=== PATIENT | male | born 1955 | race African-American/Black ===

== ENCOUNTER 2022-08-15 14:26 | Inpatient (IN) | payer OTHER ==
[~2022-08-15] VITALS: Ht 190.5 cm; Wt 120.0 kg
[2022-08-15 17:28] LABS: BASO % 0.4 % (0.0-1.0); EOS # 0.8 10^3/uL (0.0-0.5); EOS % 7.3 % (0.0-3.0); HEMATOCRIT 41.9 % (42.0-52.0); HEMOGLOBIN 13.8 g/dl (13.5-17.5); LYMPH # 1.6 10^3/uL (1.5-5.0); LYMPH % 15.2 % (24.0-44.0); MEAN CORPUSCULAR HEMOGLOBIN 30.7 pg (27.0-33.0); MEAN CORPUSCULAR HGB CONC 32.9 g/dl (32.0-36.5); MEAN CORPUSCULAR VOLUME 93.3 fl (80.0-96.0); MONO # 0.5 10^3/uL (0.0-0.8); MONO % 4.4 % (2.0-8.0); NEUTROPHILS # 7.5 10^3/uL (1.5-8.5); NEUTROPHILS % 72.4 % (36.0-66.0); PLATELET COUNT, AUTOMATED 259 10^3/uL (150-450); RED BLOOD COUNT 4.49 10^6/uL (4.30-6.10); WHITE BLOOD COUNT 10.4 10^3/uL (4.0-10.0)
[2022-08-15 18:07] LABS: CALCIUM LEVEL 9.3 MG/DL (8.8-10.2); CREATININE FOR GFR 1.62 MG/DL (0.70-1.30); GLOMERULAR FILTRATION RATE 55.6 (>49); POTASSIUM SERUM 3.6 MEQ/L (3.5-5.1)
[2022-08-15] MEDS ORDERED: HEPARIN SOD (PORCINE) 5000UNITS/ML 1ML VIAL/SYRINGE IV PRN (18:45)
[2022-08-15] MEDS ORDERED: HEPARIN SOD (PORCINE) 5000UNITS/ML 1ML VIAL/SYRINGE IV ONE (19:00)
[2022-08-15 19:12] LABS: C REACTIVE PROTEIN QUANTITATIV 1.19 MG/DL (0.00-0.30)
[2022-08-15] MEDS ORDERED: CETI-24 PO (20:03)
[2022-08-15] MEDS ORDERED: DYMI137S ×2 (20:03→20:30)
[2022-08-15] MEDS ORDERED: ALLO300T2 PO (20:03)
[2022-08-15] MEDS: HEPARIN DRIP 25,000 UNITS in IV 1 EA IV SCH (20:07)
[2022-08-15 20:22] LABS: INR 1.05; PROTHROMBIN TIME 14.1 SECONDS (12.7-14.5)
[2022-08-15 20:23] LABS: PARTIAL THROMBOPLASTIN TIME 31.5 SECONDS (25.9-37.0)
[2022-08-15 20:25] LABS: D-DIMER QUANT 1453.32 ng/ml (<500)
[2022-08-15] MEDS ORDERED: CLON0.5T2 PO (20:30)
[2022-08-15] MEDS ORDERED: ISOS1TAB35 PO (20:30)
[2022-08-15] MEDS ORDERED: PRIM50TA6 PO (20:30)
[2022-08-15] MEDS ORDERED: OMEP-173 PO (20:30)
[2022-08-15] MEDS ORDERED: POTA-149 PO (20:30)
[2022-08-15] MEDS ORDERED: MIRA3350 PO (20:30)
[2022-08-15] MEDS ORDERED: ATOR1TAB21 PO (20:30)
[2022-08-15] MEDS ORDERED: DOXE50CA PO (20:30)
[2022-08-15] MEDS ORDERED: KEPP250T5 PO (20:30)
[2022-08-15] MEDS ORDERED: AZEL1SPR3 NARES (20:30)
[2022-08-15] MEDS ORDERED: METO1TAB33 PO (20:30)
[2022-08-15] MEDS ORDERED: FURO40TA2 PO (20:30)
[2022-08-15] MEDS ORDERED: METO200T28 PO (20:30)
[2022-08-15] MEDS ORDERED: HYDR12CA PO (20:30)
[2022-08-15] MEDS ORDERED: ASPI81TA26 PO (20:30)
[2022-08-15] MEDS ORDERED: ADV500INH INH (20:30)
[2022-08-15] MEDS ORDERED: SPIR12.9 INH (20:30)
[2022-08-15] MEDS ORDERED: HYDR-3910 PO (20:30)
[2022-08-15] MEDS ORDERED: PROAAER10 INH (20:30)
[2022-08-15] MEDS ORDERED: FLON1SPR NARES (20:30)
[2022-08-15] MEDS ORDERED: VITA100093 PO (20:30)
[2022-08-15] MEDS ORDERED: DIPH50CA PO (20:30)
[2022-08-15] MEDS ORDERED: FOLI1TAB11 PO (20:30)
[2022-08-15] MEDS ORDERED: HOME MED LIST COMPLETE! XX SCH (20:35)
[2022-08-15 23:30] VITALS: BP 126/76
[2022-08-16] VITALS (7 sets, daily range): BP systolic 124–138; BP diastolic 66–85
[2022-08-16] MEDS: HEPARIN DRIP 25,000 UNITS in IV 1 EA IV SCH (03:52)
[2022-08-16] MEDS ORDERED: clonazePAM 0.5 MG TAB PO PRN (06:25)
[2022-08-16 06:46] LABS: HEMATOCRIT 36.1 % (42.0-52.0); MEAN CORPUSCULAR HEMOGLOBIN 31.3 pg (27.0-33.0); MEAN CORPUSCULAR HGB CONC 33.2 g/dl (32.0-36.5); PLATELET COUNT, AUTOMATED 228 10^3/uL (150-450); RED BLOOD COUNT 3.84 10^6/uL (4.30-6.10)
[2022-08-16 07:15] LABS: BLOOD UREA NITROGEN 18 MG/DL (7-18); CALCIUM LEVEL 9.2 MG/DL (8.8-10.2); CARBON DIOXIDE LEVEL 30 MEQ/L (21-32); CHLORIDE LEVEL 103 MEQ/L (98-107); CREATININE FOR GFR 1.43 MG/DL (0.70-1.30); GLOMERULAR FILTRATION RATE > 60.0 (>49); GLUCOSE, FASTING 88 MG/DL (70-100); POTASSIUM SERUM 3.5 MEQ/L (3.5-5.1); SODIUM LEVEL 139 MEQ/L (136-145)
[2022-08-16] MEDS: OMEPRAZOLE 20MG CAP PO SCH ×2 (08:14→21:49)
[2022-08-16] MEDS: POLYVINYL ALCOHOL OPHTH SOLN 15 ML(LIQUITEARS) OU SCH ×4 (08:14→21:49)
[2022-08-16] MEDS: allopurinoL 300 MG TAB PO SCH (08:14)
[2022-08-16] MEDS: PRIMIDONE 50MG TAB PO SCH ×2 (08:14→21:48)
[2022-08-16] MEDS: FLUTICASONE PROP 0.05% NASAL SPRAY 16 GM (FLONASE) NARES SCH (08:14)
[2022-08-16] MEDS: hydroCHLOROthiazide 12.5 MG CAPSULE PO SCH (08:14)
[2022-08-16] MEDS: FUROSEMIDE 20 MG TAB PO SCH (08:14)
[2022-08-16] MEDS: DOXEPIN 25 MG CAP PO SCH ×2 (08:15→21:49)
[2022-08-16] MEDS: ISOSORBIDE MON. (IMDUR) 30MG XR TAB PO SCH (08:15)
[2022-08-16] MEDS: levETIRAcetam 250MG TABLET (KEPPRA) PO SCH ×2 (08:15→21:49)
[2022-08-16] MEDS: METOPROLOL SUCC (TopROL XL) 100MG *XL* TAB PO SCH (08:23)
[2022-08-16] MEDS: ADVAIR HFA 230/21MCG INHALER INH SCH ×2 (08:42→19:52)
[2022-08-16] MEDS: APIXABAN 5 MG TAB (ELIQUIS) PO SCH ×2 (12:12→21:48)
[2022-08-16] MEDS: ATORVASTATIN 20 MG TAB PO SCH (21:49)
[2022-08-16] MEDS: ACETAMINOPHEN TAB 650MG DOSE (2X325MG) PO PRN (22:30)
[2022-08-17] VITALS (8 sets, daily range): BP systolic 119–143; BP diastolic 67–92; PULSE 80
[2022-08-17 06:20] LABS: HEMATOCRIT 35.7 % (42.0-52.0); HEMOGLOBIN 11.9 g/dl (13.5-17.5); MEAN CORPUSCULAR HEMOGLOBIN 31.3 pg (27.0-33.0); MEAN CORPUSCULAR HGB CONC 33.3 g/dl (32.0-36.5); MEAN CORPUSCULAR VOLUME 93.9 fl (80.0-96.0); PLATELET COUNT, AUTOMATED 236 10^3/uL (150-450); WHITE BLOOD COUNT 7.5 10^3/uL (4.0-10.0)
[2022-08-17 06:45] LABS: BLOOD UREA NITROGEN 22 MG/DL (7-18); CARBON DIOXIDE LEVEL 29 MEQ/L (21-32); CHLORIDE LEVEL 102 MEQ/L (98-107); CREATININE FOR GFR 1.49 MG/DL (0.70-1.30); GLOMERULAR FILTRATION RATE > 60.0 (>49); GLUCOSE, FASTING 106 MG/DL (70-100); POTASSIUM SERUM 3.5 MEQ/L (3.5-5.1); SODIUM LEVEL 137 MEQ/L (136-145)
[2022-08-17] MEDS ORDERED: ACET1TAB55 PO (07:17)
[2022-08-17] MEDS ORDERED: ELIQ5TAB PO (07:17)
[2022-08-17] MEDS: allopurinoL 300 MG TAB PO SCH (09:00)
[2022-08-17] MEDS: APIXABAN 5 MG TAB (ELIQUIS) PO SCH ×2 (09:00→21:28)
[2022-08-17] MEDS: ADVAIR HFA 230/21MCG INHALER INH SCH ×2 (09:00→19:10)
[2022-08-17] MEDS: ISOSORBIDE MON. (IMDUR) 30MG XR TAB PO SCH (09:00)
[2022-08-17] MEDS: METOPROLOL SUCC (TopROL XL) 100MG *XL* TAB PO SCH (09:01)
[2022-08-17] MEDS: PRIMIDONE 50MG TAB PO SCH ×2 (09:01→21:27)
[2022-08-17] MEDS: FUROSEMIDE 20 MG TAB PO SCH (09:01)
[2022-08-17] MEDS: OMEPRAZOLE 20MG CAP PO SCH ×2 (09:01→21:27)
[2022-08-17] MEDS: hydroCHLOROthiazide 12.5 MG CAPSULE PO SCH (09:01)
[2022-08-17] MEDS: DOXEPIN 25 MG CAP PO SCH ×2 (09:01→21:27)
[2022-08-17] MEDS: levETIRAcetam 250MG TABLET (KEPPRA) PO SCH ×2 (09:01→21:27)
[2022-08-17] MEDS: FLUTICASONE PROP 0.05% NASAL SPRAY 16 GM (FLONASE) NARES SCH (09:04)
[2022-08-17] MEDS: POLYVINYL ALCOHOL OPHTH SOLN 15 ML(LIQUITEARS) OU SCH ×4 (09:04→21:34)
[2022-08-17] MEDS: ACETAMINOPHEN TAB 650MG DOSE (2X325MG) PO PRN ×2 (09:09→16:18)
[2022-08-17] MEDS: PERCOCET 5MG/325MG TAB PO PRN ×2 (10:44→21:29)
[2022-08-17] MEDS: ATORVASTATIN 20 MG TAB PO SCH (21:30)
[2022-08-18 00:07] LABS: ANTI THROMBIN 3 ANTIGEN IMMUNO 86 % (72-124); ANTI THROMBIN 3 FUNCT ACTIVITY 69 % (75-135); ANTINUCLEAR ANTIBODIES DIRECT Negative (Negative); CARDIOLIPIN IGA ANTIBODY <9 APL U/mL (0-11); CARDIOLIPIN IGG ANTIBODY <9 GPL U/mL (0-14); CARDIOLIPIN IGM ANTIBODY <9 MPL U/mL (0-12)
[2022-08-18 05:48] LABS: HEMATOCRIT 34.9 % (42.0-52.0); HEMOGLOBIN 11.6 g/dl (13.5-17.5); MEAN CORPUSCULAR HEMOGLOBIN 31.4 pg (27.0-33.0); MEAN CORPUSCULAR HGB CONC 33.2 g/dl (32.0-36.5); MEAN CORPUSCULAR VOLUME 94.3 fl (80.0-96.0); PLATELET COUNT, AUTOMATED 220 10^3/uL (150-450); WHITE BLOOD COUNT 6.9 10^3/uL (4.0-10.0)
[2022-08-18 06:00] VITALS: BP 119/74
[2022-08-18 06:18] LABS: BLOOD UREA NITROGEN 23 MG/DL (7-18); CARBON DIOXIDE LEVEL 30 MEQ/L (21-32); CHLORIDE LEVEL 105 MEQ/L (98-107); GLOMERULAR FILTRATION RATE > 60.0 (>49); GLUCOSE, FASTING 104 MG/DL (70-100); POTASSIUM SERUM 3.4 MEQ/L (3.5-5.1); SODIUM LEVEL 139 MEQ/L (136-145)
[2022-08-18] MEDS: ADVAIR HFA 230/21MCG INHALER INH SCH (07:12)
[2022-08-18 08:00] VITALS: BP 163/98
[2022-08-18] MEDS: PRIMIDONE 50MG TAB PO SCH (08:06)
[2022-08-18] MEDS: DOXEPIN 25 MG CAP PO SCH (08:06)
[2022-08-18] MEDS: APIXABAN 5 MG TAB (ELIQUIS) PO SCH (08:07)
[2022-08-18] MEDS: ACETAMINOPHEN TAB 650MG DOSE (2X325MG) PO PRN (08:07)
[2022-08-18] MEDS: allopurinoL 300 MG TAB PO SCH (08:07)
[2022-08-18] MEDS: ISOSORBIDE MON. (IMDUR) 30MG XR TAB PO SCH (08:07)
[2022-08-18] MEDS: hydroCHLOROthiazide 12.5 MG CAPSULE PO SCH (08:07)
[2022-08-18] MEDS: OMEPRAZOLE 20MG CAP PO SCH (08:08)
[2022-08-18] MEDS: FUROSEMIDE 20 MG TAB PO SCH (08:08)
[2022-08-18] MEDS: levETIRAcetam 250MG TABLET (KEPPRA) PO SCH (08:08)
[2022-08-18] MEDS: FLUTICASONE PROP 0.05% NASAL SPRAY 16 GM (FLONASE) NARES SCH (08:09)
[2022-08-18] MEDS: POLYVINYL ALCOHOL OPHTH SOLN 15 ML(LIQUITEARS) OU SCH (08:09)
[2022-08-18] MEDS: METOPROLOL SUCC (TopROL XL) 100MG *XL* TAB PO SCH (08:13)
[2022-08-18] MEDS ORDERED: POTASSIUM CHLORIDE 10MEQ SR TABLET PO SCH (09:00)
[2022-08-23] MEDS ORDERED: APIXABAN 5 MG TAB (ELIQUIS) PO SCH (09:00)
== END 2022-08-18 14:12 | disposition home or self-care (01) | DRG 315 ==
LOC: M ED 14:26 → M ED INP 18:44 → M PCU 22:25
PROVIDERS: ADMIT Internal Medicine; ATTEND Internal Medicine
DX: T82.868A Thrombosis due to vascular prosthetic devices, implants and grafts, initial encounter (principal); F13.20 Sedative, hypnotic or anxiolytic dependence, uncomplicated; I82.B21 Chronic embolism and thrombosis of right subclavian vein; G40.909 Epilepsy, unspecified, not intractable, without status epilepticus; J44.9 Chronic obstructive pulmonary disease, unspecified; K21.9 Gastro-esophageal reflux disease without esophagitis; M10.9 Gout, unspecified; R25.1 Tremor, unspecified; I12.9 Hypertensive chronic kidney disease with stage 1 through stage 4 chronic kidney disease, or unspecified chronic kidney disease; N18.30 Chronic kidney disease, stage 3 unspecified; Z92.21 Personal history of antineoplastic chemotherapy; Z92.3 Personal history of irradiation; Z85.118 Personal history of other malignant neoplasm of bronchus and lung; Z79.52 Long term (current) use of systemic steroids; Z79.82 Long term (current) use of aspirin; Z79.899 Other long term (current) drug therapy; Z88.6 Allergy status to analgesic agent; Z88.8 Allergy status to other drugs, medicaments and biological substances; Z88.2 Allergy status to sulfonamides; Y83.1 Surgical operation with implant of artificial internal device as the cause of abnormal reaction of the patient, or of later complication, without mention of misadventure at the time of the procedure